=== PATIENT | male | born 1965 | race Caucasian/White ===

== ENCOUNTER → 2021-01-01 15:13 | Outpatient (BNVA) | payer OTHER, SELFPAY | PROVIDERS: Family Provider Family Medicine; PCP Nurse Practitioner; Visit Provider Specialist | DX: G56.01 Carpal tunnel syndrome, right upper limb (principal) | CPT/HCPCS: 95908; 95909 ==

== ENCOUNTER 2021-01-08 17:00 | Outpatient (CLI) | payer OTHER, SELFPAY ==
--- NOTE | 2021-01-08 | MR_ITS ---
WS: [id number] MRI LEFT SHOULDER HISTORY: Shoulder pain with decreased motion. Prior injury. COMPARISON: None available. TECHNIQUE: Multiplanar sequences of the shoulder joint are submitted. Moderate hypertrophy of the LEFT AC joint. There is edema and increased T2 signal in the clavicle and acromion and extending through the joint space. Fluid like signal within the AC ligament. There is t hickening of the capsule surrounding the AC joint. Very slight encroachment upon the supraspinatus. N o os acromion. Biceps tendon remains normally positioned with normal signal. No muscle atrophy or tear of the biceps tendon. No significant tendinopathy. Focal edema in the poste rior superior LEFT humeral head measures 18 x 10 mm. Cortex is been disrupted. There is a concave def ect in the humeral head. Likely Hill-Sachs deformity. There is no marrow edema or signal abnormality within the glenoid. There is a small amount of edema and increased T2 signal in the coracoclavicular ligament the ligament does appear to be intact. No joint effusion. No muscle atrophy or edema. MR/MR shoulder LT wo con* [id number] IMPRESSION: 1. Moderate AC joint arthritis. 2. Acute injury involving the posterior lateral humeral head with a concave de fect is a Hill-Sachs lesion. Disruption of the overlying cortex of the bone con sistent with trabecular fracture. 3. No glenoid fracture or labral tear is identified. 4. Mild edema and injury involving the coracoclavicular ligament but no comple te tear.
== END 2021-01-08 17:01 | disposition home or self-care (01) ==
LOC: RADSHAW 17:05
PROVIDERS: Family Provider Family Medicine; PCP Nurse Practitioner; Visit Provider Nurse Practitioner
DX: M13.812 Other specified arthritis, left shoulder (principal); S49.92XA Unspecified injury of left shoulder and upper arm, initial encounter; X58.XXXA Exposure to other specified factors, initial encounter; R60.0 Localized edema
CPT/HCPCS: 73221

== ENCOUNTER 2021-01-15 15:44 | Outpatient (CLI) | payer OTHER, SELFPAY ==
--- NOTE | 2021-01-15 | XRR_ITS ---
PROCEDURE INFORMATION: Exam: XR Left Shoulder Exam date and time: 01/15/2021 12:00 AM Age: 55 years old Clinical indication: Right; Patient HX: Pain lt shoulder, denies trauma, abnormal mri RT shoulder; Additional info: Lt shoulder pain TECHNIQUE: Imaging protocol: XR Left shoulder. Views: 2 or more views. Total images: 3 COMPARISON: MR shoulder LT wo con* [id number] 01/08/2021 5:19 PM FINDINGS: Bones/joints: Normal. Soft tissues: Normal. MTDD
== END 2021-01-15 15:45 | disposition home or self-care (01) ==
PROVIDERS: PCP Nurse Practitioner; Visit Provider Nurse Practitioner
DX: M25.512 Pain in left shoulder (principal)
CPT/HCPCS: 73030

== ENCOUNTER 2022-06-24 11:55 | Outpatient (CLI) | payer OTHER, SELFPAY ==
--- NOTE | 2022-06-24 | ECG_ITS ---
[facility] Test Date: 2022-06-24 Pat Name: Jeff Taveras Department: Room: Gender: Male Recreational Specialist: Autumn Rushing : 1965 Requested By: Juliet Miguel Order Number: [id number] Johnson MD: Zoe Oneill M.D. Interpretive Statements NAME OF STUDY: TREADMILL STRESS TEST INDICATION: Shortness of Breath Baseline blood pressure of 132/94 mm Hg, heart rate of 74 beats per minute and oxygen saturation of 98%. EKG showed sinus rhythm, normal axis and non specific T wave inversion in lead III and aVF. RSR' in V1. ??? The patient exercised for 12 minutes and 20 seconds on a [standard Nelson protocol]. Patient attained a maximum heart rate of 181 beats per minute( 111 % of the maximum predicted heart rate) with a blood pressure at the peak exercise of 206/105 mm Hg. The EKG at the peak exercise revealed sinus tachycardia with no significant ST-T wave changes. Patient did not have any chest pain or any significant arrhythmis with the exercise. The study was terminated due to maximal effort.??? During the recovery phase, there were no new changes. ??? Blood pressure at the end of the recovery phase was 129/96 mm Hg with a heart rate of 84 beats per minute. ??? CONCLUSION: 1. Normal EKG response to treadmill exercise. 2. No exercise-induced chest pain or cardiac arrhythmia. 3. Excellent exercise tolerance. Patient exercised for 12 minutes and 20 seconds and attained a maximum of 17.2 METs. 4. Baseline hypertension with hypertensive response to exercise. Electronically Signed On 06-24-2022 20:28:41 [employer] by Zoe Oneill M.D. [id number]
[2022-06-24 12:08] VITALS: BMI 27.8
[2022-06-24 12:58] VITALS: BP 129/96; PULSE 85
== END 2022-06-24 11:56 | disposition home or self-care (01) ==
PROVIDERS: PCP Nurse Practitioner; Visit Provider Nurse Practitioner
DX: R07.9 Chest pain, unspecified (principal)
CPT/HCPCS: 93017

== ENCOUNTER 2023-05-15 08:43 | Oncology outpatient (recurring) (ONCR) | payer OTHER, SELFPAY ==
[2023-05-15 09:58] LABS: Basophils % 0.6 %; Eosinophils # 0.1 10^3/uL (0.0-0.8); Eosinophils % 0.9 %; Hematocrit 45.1 % (37-53); Lymphocytes # 1.9 10^3/uL (0.8-4.8); Lymphocytes % 34.7 %; Mean Corpuscular HGB Conc 33.5 g/dL (30-55); Mean Corpuscular Hemoglobin 30.7 pg (27-33); Mean Corpuscular Volume 91.7 fl (82-101); Monocytes # 0.5 10^3/uL (0.2-0.9); Monocytes % 9.2 %; Neutrophils # 2.91 10^3/uL (1.8-7.7); Neutrophils % 53.3 %; Nucleated Red Blood Cells % 0 %; Platelet Count 133 10^3/cmm (157-399); Red Blood Count 4.92 10^6/uL (3.85-5.65); Red Cell Distribution Width 12.9 % (12.1-15.1); White Blood Count 5.45 10^3/uL (3.29-11.43)
[2023-05-15 10:20] LABS: Erythrocyte Sedimentation Rate 1 mm/hr (0-10)
[2023-05-15 10:21] LABS: LAB Peripheral Smear Sent for Review
[2023-05-15 10:38] LABS: Alanine Aminotransferase 17 U/L (0-41); Albumin Level 4.2 g/dL (3.5-5.2); Alkaline Phosphatase 64 U/L (40-130); Anion Gap 12.4 (5-19); Aspartate Amino Transferase 17 U/L (0-40); Blood Urea Nitrogen 22 mg/dL (6-20); Calcium 8.8 mg/dL (8.5-10.5); Carbon Dioxide 27 mmol/L (22-29); Chloride 107 mmol/L (98-107); Globulin 2.4 g/dL (1.3-4.6); Glomerular Filtration Rate 86.4 mL/min (90-130); Glucose 84 mg/dL (65-115); Lactate Dehydrogenase 170 U/L (135-225); Osmolality Calculated 297 mOsm/kg (285-295); Potassium 4.4 mmol/L (3.5-5.1); Sodium 142 mmol/L (136-145); Total Bilirubin 0.8 mg/dL (0.15-1.2); Total Protein 6.6 g/dL (6.6-8.7); Vitamin B12 354 pg/mL (232-1245)
[2023-05-15 10:40] LABS: Folate Level 15.6 ng/mL (4.5-32.2)
[2023-05-18 15:29] LABS: Anti-Nuclear Antibody Screen NEGATIVE (NEGATIVE)
[2023-05-18 22:14] LABS: Methylmalonic Acid 151 nmol/L (87-318)
== END 2023-06-10 23:59 | disposition home or self-care (01) ==
PROVIDERS: Internal Medicine Medical Oncology; PCP Nurse Practitioner; Visit Provider Nurse Practitioner
DX: D69.6 Thrombocytopenia, unspecified (principal); R53.83 Other fatigue; Z79.899 Other long term (current) drug therapy
CPT/HCPCS: 36415; 80053; 82607; 82746; 83615; 83921; 84443; 85025; 85651; 86038; 86140; 99204

== ENCOUNTER → 2023-09-03 10:14 | Outpatient (BNVA) | payer OTHER, SELFPAY | PROVIDERS: PCP Nurse Practitioner; Visit Provider Internal Medicine Medical Oncology | DX: D69.6 Thrombocytopenia, unspecified (principal) | CPT/HCPCS: 80503; 85025 ==